=== PATIENT | male | born 1970 | race Caucasian/White ===

== ENCOUNTER 2016-06-15 21:16 | Inpatient (IN) | payer SELFPAY ==
[~2016-06-15] VITALS: Ht 175.3 cm; Wt 68.3 kg
[2016-06-15 00:30] VITALS: BP 90/48
[2016-06-15 00:45] VITALS: BP 88/47
[2016-06-16] VITALS (22 sets, daily range): BP systolic 83–134; BP diastolic 39–61
--- NOTE | 2016-06-16 01:38 | RAD ---
Examination: Single frontal view chest HISTORY ET tube placement. COMPARISON None available performed. FINDINGS The ET tube tip is identified in the trachea just below the level of the clavicles. The cardiomediastinal silhouette grossly appears unremarkable. The feeding tube is seen below the diaphragm with the tip likely in the stomach. There is no acute infiltrate or visualized pneumothorax identified. IMPRESSION 1. ET tube, feeding tube in place. 2. No acute cardiopulmonary findings. Electronically signed by: Darwin Wheat (Jun 16, 2016 01:37:13)
--- NOTE | 2016-06-16 01:39 | RAD ---
Examination: Frontal with abdomen. HISTORY History of feeding tube placement. COMPARISON None available Findings The NG tube tip projects in the left mid abdomen likely within the body of the stomach. The bowel gas pattern appears unremarkable. Feces and gas noted in the colon. IMPRESSION NG tube in place. Electronically signed by: Darwin Wheat (Jun 16, 2016 01:38:23)
[2016-06-16] MEDS ORDERED: MIDAZOLAM PREMIX 100 ML IV PRN (02:15)
[2016-06-16 02:41] LABS: HEMATOCRIT 34.9 % (39.0-53.0); HEMOGLOBIN 11.7 g/dL (13.0-17.5); RED BLOOD COUNT 3.99 x10^6/uL (4.30-5.70)
[2016-06-16 02:46] LABS: ALBUMIN 3.1 g/dL (3.4-5.0); ALBUMIN/GLOBULIN RATIO 1.1 (1.0-1.7); CALCIUM 8.2 mg/dL (8.5-10.1); CREATININE 0.9 mg/dL (0.7-1.3); GFR 91.7; POTASSIUM 3.8 mmol/L (3.5-5.1); TOTAL BILIRUBIN 0.3 mg/dL (0.2-1.0); TOTAL PROTEIN 5.9 g/dL (6.4-8.2)
[2016-06-16] MEDS ORDERED: HYDR50CA PO (03:27)
[2016-06-16 08:22] LABS: HCO3 ABG 22 mmol/L (21-28); PCO2 ABG 39 mmHg (35-46); PH ABG 7.38 (7.35-7.45); PO2 ABG 88 mmHg (75-108); SAT O2 ABG 97 % (92-99)
[2016-06-16 08:25] LABS: FIO2 ABG 40
[2016-06-16] MEDS: CHLORHEXIDINE 0.12% 15 ML MOUTHWASH. MM SCH ×3 (09:00→21:00)
--- NOTE | 2016-06-16 12:14 | PDOC ---
Provider Note Provider Note dictated LINDY SHARMA MD Jun 16, 2016 12:14
[2016-06-16 12:17] LABS: FIO2 ABG 40; HCO3 ABG 25 mmol/L (21-28); PCO2 ABG 39 mmHg (35-46); PH ABG 7.42 (7.35-7.45); PO2 ABG 130 mmHg (75-108); SAT O2 ABG 98 % (92-99)
[2016-06-16 12:18] LABS: ALLEN TEST Y
[2016-06-16] MEDS: PANTOPRAZOLE IV PUSH 40 MG VIAL. IVP SCH (12:43)
[2016-06-16] MEDS ORDERED: ENOXAPARIN 40 MG/0.4 ML DISP.SYRIN. SQ SCH (13:00)
[2016-06-16] MEDS: CEFTRIAXONE SODIUM 1 GM in IV NORMAL SALINE 50ML 50 ML IV SCH (13:49)
--- NOTE | 2016-06-16 14:16 | HP ---
ADMIT DATE: 06/16/2016 CHIEF COMPLAINT: Mental status change. HISTORY OF PRESENT ILLNESS: The patient is a pleasant 45-year-old male who I believe is having issues with drug abuse. He also has a history of seizures and psychiatric issues. From the story I got, he was [place] where he was acting abnormal. I guess he was placed on an ambulance, was combative. He was given 300 mg of IM ketamine to calm him down. He was then taken to [facility] ER and when he got there, the ER doctor felt like his respiratory status was poor. He could not protect his airway. The ER doctor went ahead and intubated him. The ER physician called me last night. I accept him as a transfer. The patient is now in the ICU on the vent. PAST MEDICAL HISTORY: Difficult to obtain, but in the record, it appears he has seizures, depression, anxiety, probable drug abuse, tobacco abuse. ALLERGIES: Codeine, tetanus, and diphtheria toxoids. SOCIAL HISTORY: He lives at [place], we are not sure if he smokes or drinks. We believe he takes drugs. MEDICATIONS: Reviewed, please refer to the MRAD. REVIEW OF SYSTEMS: Unobtainable. PHYSICAL EXAMINATION: VITAL SIGNS: Temperature is 100.7, pulse 100, respirations 16, blood pressure currently 108/44. GENERAL: He is sedated on the vent. HEART: Distant S1, S2, a little bit tachycardic. LUNGS: Seems mostly clear with some slight left crackles. ABDOMEN: Soft, decreased bowel sounds. EXTREMITIES: Trace edema. SKIN: No rashes. ENDOCRINE: No thyromegaly. LYMPHATICS: No cervical nodes. HEMATOPOIETIC: No bruising. LABORATORY DATA: White count 9, hemoglobin 11.7, platelets 178. Electrolytes: Sodium 143, potassium 3.8, chloride 108, bicarbonate 28, BUN 20, creatinine 0.9, glucose 107. AST is 24, ALT is slightly low at 14, alkaline phosphatase little low at 43. Total protein low at 5.9. Albumin low at 3.1. KUB shows that he has an NG in place. Chest x-ray, no acute cardiopulmonary finding. ASSESSMENT AND PLAN: Mental status change, suspect toxic encephalopathy from drugs with secondary respiratory failure. The patient has been admitted to the ICU. We consulted Pulmonary to help us wean him off the ventilator. We will continue his home medications. Regarding the fever and he had high white count earlier at [facility], we are going to go ahead and consult Infectious Disease. Once we get him off the ventilator, I suspect he will need psychiatric assessment. PROGNOSIS: Guarded. NIAL Candace DIAZ DO DR: RUDY/fannie JOB#: [id number] / [id number]
[2016-06-16 15:13] LABS: HCO3 ABG 24 mmol/L (21-28); PCO2 ABG 41 mmHg (35-46); PH ABG 7.38 (7.35-7.45); PO2 ABG 62 mmHg (75-108); SAT O2 ABG 92 % (92-99)
[2016-06-16 15:15] LABS: FIO2 ABG 40
--- NOTE | 2016-06-16 15:28 | CONS ---
DATE OF CONSULTATION: ATTENDING PHYSICIAN: Dr. Pro. REASON FOR CONSULTATION: Respiratory failure, drug overdose. HISTORY OF PRESENT ILLNESS: The patient is a 45-year-old male who was a resident of [facility]. He has psychiatric history. The patient was brought to [place] [facility] with altered level of consciousness and unknown drug ingestion was suspected. He was very combative in the ER and he received 300 mg of Ketamine. He was very agitated and he was intubated for airway protection. The patient does have history of seizure disorder. At this point, there is no documentation whether he had seizure or not, he did had increased lactic acid at [facility] was 5.9, which is now down to only 0.9. He is sedated with low-dose Versed. His chest x-ray was clear, endotracheal tube is in satisfactory position. I have been asked to see him for ventilator management. He had a fever of 100.7. PAST MEDICAL HISTORY: Seizure disorder and anxiety. PAST SURGICAL HISTORY: Unknown. SOCIAL HISTORY: Unknown. ALLERGIES: CODEINE, TETANUS AND DIPHTHERIA. CURRENT MEDICATIONS: Reviewed as listed in the MRAD. PHYSICAL EXAMINATION: VITAL SIGNS: On examination, T-max of 100.7, blood pressure 115/54, pulse ox 98% on current AC mode and tidal volume of 550 and 40% FiO2. HEENT: Sclerae nonicteric. NECK: Supple. LUNGS: Clear. CARDIOVASCULAR: Regular rate. ABDOMEN: Soft. EXTREMITIES: With no pitting edema. LABORATORY DATA: Chest x-ray was reviewed and was clear. Labs from [facility] were reviewed. BUN was 18, creatinine 1.0. Urine drug screen: Positive for benzo. ABGs with a pH of 7.32, pCO2 of 52 and a pO2 of 256. His CBC was also reviewed. White cell count 13.5. IMPRESSION: 1. Acute respiratory failure secondary to acute toxic encephalopathy. 2. Acute toxic encephalopathy. He had ingested unknown substance. Urine drug screen was positive for benzo only. We will discontinue sedation and assess his mental status. 3. Low-grade fever. It could be related to seizure. His lactic acid has now completely normalized and I think it is probably related to seizure. Chest x-ray is clear. We would monitor for fever and maybe consider empiric antibiotics. RECOMMENDATIONS: 1. Discontinue Versed. 2. Assess for mental status. 3. If he wakes up and does not become agitated, then we will do a CPAP trial and possible extubation 4. Add empiric antibiotics. 5. Consult neurology. LINDY SHARMA MD DR: BELKIS/fannie JOB#: [id number] / [id number] HERMES
[2016-06-16] MEDS: GUAIFENESIN 200 MG/10 ML LIQUID. PO PRN (23:59)
[2016-06-17] VITALS (12 sets, daily range): BP systolic 95–136; BP diastolic 50–68
[2016-06-17] MEDS: GUAIFENESIN 200 MG/10 ML LIQUID. PO PRN (04:13)
[2016-06-17 04:52] LABS: BASO % 0 % (0-3); EOS % 1 % (0-3); HEMATOCRIT 36.5 % (39.0-53.0); HEMOGLOBIN 12.4 g/dL (13.0-17.5); LYMPH # 1.3 x10^3/uL (1.0-4.8); LYMPH % 15 % (24-48); MEAN CORPUSCULAR HEMOGLOBIN 29 pg (25-35); MEAN CORPUSCULAR HGB CONC 34 g/dL (31-37); MEAN CORPUSCULAR VOLUME 86 fL (79-100); MONO % 13 % (0-9); NEUT % 71 % (31-73); PLATELET COUNT 165 x10^3/uL (140-400); RED BLOOD COUNT 4.25 x10^6/uL (4.30-5.70); RED CELL DISTRIBUTION WIDTH 13.9 % (11.5-14.5)
[2016-06-17 05:09] LABS: CALCIUM 8.1 mg/dL (8.5-10.1); CREATININE 0.7 mg/dL (0.7-1.3); GFR 122.5; POTASSIUM 3.2 mmol/L (3.5-5.1)
--- NOTE | 2016-06-17 07:54 | PDOC ---
Infectious Disease Note ROS ROS GEN: Denies fevers, chills, sweats HEENT: Denies blurred vision, sore throat CV: Denies chest pain RESP: Denies shortness of air, cough GI: Denies n/v/d NEURO: Denies confusion, dizziness MSK: Denies weakness, joint pain/swelling Vital Sign Vital Signs Vital Signs Date Time Temp Pulse Resp B/P Pulse Ox O2 Delivery O2 Flow Rate FiO2 06/17/16 06:00 68 19 106/56 98 Room Air 06/17/16 04:00 98.3 98.3 06/16/16 14:00 2.0 Physical Exam PHYSICAL EXAM GENERAL: NAD, Alert HEENT: PERRL, OC/OP NECK: Supple, no JVD, no LN LUNGS: Clear HEART: S1S2, no gallop, no murmur ABD: Soft, NT, no organomegaly, no rebound EXT: No edema, no cyanosis [employer]: Alert, oriented x 3, no focal neurologic deficit SKIN: No rash IV: ok Labs Lab Laboratory Tests Test 06/16/16 08:00 06/16/16 10:45 06/16/16 15:00 06/17/16 04:30 O2 Saturation 97% (92-99) 92% (92-99) Arterial Blood pH 7.38 (7.35-7.45) 7.38 (7.35-7.45) Arterial Blood pCO2 at Patient Temp 39mmHg (35-46) 41mmHg (35-46) Arterial Blood pO2 at Patient Temp 88mmHg (75-108) 62mmHg (75-108) Arterial Blood HCO3 22mmol/L (21-28) 24mmol/L (21-28) Arterial Blood Base Excess -2mmol/L (-3-3) -1mmol/L (-3-3) FiO2 40 40 Lactic Acid Level 0.5mmol/L (0.4-2.0) White Blood Count 9.0x10^3/uL (4.0-11.0) Red Blood Count 4.25x10^6/uL (4.30-5.70) Hemoglobin 12.4g/dL (13.0-17.5) Hematocrit 36.5% (39.0-53.0) Mean Corpuscular Volume 86fL (79-100) Mean Corpuscular Hemoglobin 29pg (25-35) Mean Corpuscular Hemoglobin Concent 34g/dL (31-37) Red Cell Distribution Width 13.9% (11.5-14.5) Platelet Count 165x10^3/uL (140-400) Neutrophils (%) (Auto) 71% (31-73) Lymphocytes (%) (Auto) 15% (24-48) Monocytes (%) (Auto) 13% (0-9) Eosinophils (%) (Auto) 1% (0-3) Basophils (%) (Auto) 0% (0-3) Neutrophils # (Auto) 6.3x10^3uL (1.8-7.7) Lymphocytes # (Auto) 1.3x10^3/uL (1.0-4.8) Monocytes # (Auto) 1.2x10^3/uL (0.0-1.1) Eosinophils # (Auto) 0.1x10^3/uL (0.0-0.7) Basophils # (Auto) 0.0x10^3/uL (0.0-0.2) Sodium Level 141mmol/L (136-145) Potassium Level 3.2mmol/L (3.5-5.1) Chloride Level 107mmol/L (98-107) Carbon Dioxide Level 25mmol/L (21-32) Anion Gap 9 (6-14) Blood Urea Nitrogen 10mg/dL (8-26) Creatinine 0.7mg/dL (0.7-1.3) Estimated GFR (Cockcroft-Gault) 122.5 Glucose Level 81mg/dL (70-99) Calcium Level 8.1mg/dL (8.5-10.1) Objective Assessment Fever - improved Sinus congestion ? URI ? thrush H/o Hep C - treated ? Substance abuse Plan Plan of Care Cont Rocephin Add Azithromycin Add Nystatin HIV abd F/u labs and response Labs reviewed Thank you # [id number] JOSE JURADO MD Jun 17, 2016 07:54
[2016-06-17] MEDS: PANTOPRAZOLE IV PUSH 40 MG VIAL. IVP SCH (08:17)
[2016-06-17] MEDS ORDERED: AZITHROMYCIN 250 MG TABLET PO SCH (09:00)
[2016-06-17] MEDS ORDERED: NYSTATIN 100,000 UNITS/ML 5 ML ORAL.SUSP. SWSW SCH (09:00)
[2016-06-17] MEDS: CEFTRIAXONE SODIUM 1 GM in IV NORMAL SALINE 50ML 50 ML IV SCH (09:16)
[2016-06-17] MEDS ORDERED: POTASSIUM CHLORIDE 20 MEQ TABLET.ER. PO ONE (10:00)
--- NOTE | 2016-06-17 11:14 | PDOC ---
PULMONARY PROGRESS NOTES Subjective full awake extubated 06/16 am Vitals Vital Signs Date Time Temp Pulse Resp B/P Pulse Ox O2 Delivery O2 Flow Rate FiO2 06/17/16 08:00 Room Air 06/17/16 06:00 68 19 106/56 98 06/17/16 04:00 98.3 98.3 06/16/16 14:00 2.0 General: Alert, No acute distress Lungs: Clear Abdomen: Soft Neuro Exam: Alert Extremities: No Edema Skin: Warm Labs Laboratory Tests Test 06/16/16 00:35 06/16/16 01:00 06/16/16 01:50 06/16/16 08:00 Nasal Screen MRSA (PCR) Negative (Negative) O2 Saturation 98% (92-99) 97% (92-99) Arterial Blood pH 7.42 (7.35-7.45) 7.38 (7.35-7.45) Arterial Blood pCO2 at Patient Temp 39mmHg (35-46) 39mmHg (35-46) Arterial Blood pO2 at Patient Temp 130mmHg (75-108) 88mmHg (75-108) Arterial Blood HCO3 25mmol/L (21-28) 22mmol/L (21-28) Arterial Blood Base Excess 1mmol/L (-3-3) -2mmol/L (-3-3) FiO2 40 40 White Blood Count 9.0x10^3/uL (4.0-11.0) Red Blood Count 3.99x10^6/uL (4.30-5.70) Hemoglobin 11.7g/dL (13.0-17.5) Hematocrit 34.9% (39.0-53.0) Mean Corpuscular Volume 88fL (79-100) Mean Corpuscular Hemoglobin 29pg (25-35) Mean Corpuscular Hemoglobin Concent 34g/dL (31-37) Red Cell Distribution Width 14.0% (11.5-14.5) Platelet Count 178x10^3/uL (140-400) Sodium Level 143mmol/L (136-145) Potassium Level 3.8mmol/L (3.5-5.1) Chloride Level 108mmol/L (98-107) Carbon Dioxide Level 28mmol/L (21-32) Anion Gap 7 (6-14) Blood Urea Nitrogen 20mg/dL (8-26) Creatinine 0.9mg/dL (0.7-1.3) Estimated GFR (Cockcroft-Gault) 91.7 BUN/Creatinine Ratio 22 (6-20) Glucose Level 107mg/dL (70-99) Lactic Acid Level 0.9mmol/L (0.4-2.0) Calcium Level 8.2mg/dL (8.5-10.1) Total Bilirubin 0.3mg/dL (0.2-1.0) Aspartate Amino Transf (AST/SGOT) 24U/L (15-37) Alanine Aminotransferase (ALT/SGPT) 14U/L (16-63) Alkaline Phosphatase 43U/L (46-116) Total Protein 5.9g/dL (6.4-8.2) Albumin 3.1g/dL (3.4-5.0) Albumin/Globulin Ratio 1.1 (1.0-1.7) Test 06/16/16 10:45 06/16/16 15:00 06/17/16 04:30 Lactic Acid Level 0.5mmol/L (0.4-2.0) O2 Saturation 92% (92-99) Arterial Blood pH 7.38 (7.35-7.45) Arterial Blood pCO2 at Patient Temp 41mmHg (35-46) Arterial Blood pO2 at Patient Temp 62mmHg (75-108) Arterial Blood HCO3 24mmol/L (21-28) Arterial Blood Base Excess -1mmol/L (-3-3) FiO2 40 White Blood Count 9.0x10^3/uL (4.0-11.0) Red Blood Count 4.25x10^6/uL (4.30-5.70) Hemoglobin 12.4g/dL (13.0-17.5) Hematocrit 36.5% (39.0-53.0) Mean Corpuscular Volume 86fL (79-100) Mean Corpuscular Hemoglobin 29pg (25-35) Mean Corpuscular Hemoglobin Concent 34g/dL (31-37) Red Cell Distribution Width 13.9% (11.5-14.5) Platelet Count 165x10^3/uL (140-400) Neutrophils (%) (Auto) 71% (31-73) Lymphocytes (%) (Auto) 15% (24-48) Monocytes (%) (Auto) 13% (0-9) Eosinophils (%) (Auto) 1% (0-3) Basophils (%) (Auto) 0% (0-3) Neutrophils # (Auto) 6.3x10^3uL (1.8-7.7) Lymphocytes # (Auto) 1.3x10^3/uL (1.0-4.8) Monocytes # (Auto) 1.2x10^3/uL (0.0-1.1) Eosinophils # (Auto) 0.1x10^3/uL (0.0-0.7) Basophils # (Auto) 0.0x10^3/uL (0.0-0.2) Sodium Level 141mmol/L (136-145) Potassium Level 3.2mmol/L (3.5-5.1) Chloride Level 107mmol/L (98-107) Carbon Dioxide Level 25mmol/L (21-32) Anion Gap 9 (6-14) Blood Urea Nitrogen 10mg/dL (8-26) Creatinine 0.7mg/dL (0.7-1.3) Estimated GFR (Cockcroft-Gault) 122.5 Glucose Level 81mg/dL (70-99) Calcium Level 8.1mg/dL (8.5-10.1) Laboratory Tests Test 06/16/16 15:00 06/17/16 04:30 O2 Saturation 92% (92-99) Arterial Blood pH 7.38 (7.35-7.45) Arterial Blood pCO2 at Patient Temp 41mmHg (35-46) Arterial Blood pO2 at Patient Temp 62mmHg (75-108) Arterial Blood HCO3 24mmol/L (21-28) Arterial Blood Base Excess -1mmol/L (-3-3) FiO2 40 White Blood Count 9.0x10^3/uL (4.0-11.0) Red Blood Count 4.25x10^6/uL (4.30-5.70) Hemoglobin 12.4g/dL (13.0-17.5) Hematocrit 36.5% (39.0-53.0) Mean Corpuscular Volume 86fL (79-100) Mean Corpuscular Hemoglobin 29pg (25-35) Mean Corpuscular Hemoglobin Concent 34g/dL (31-37) Red Cell Distribution Width 13.9% (11.5-14.5) Platelet Count 165x10^3/uL (140-400) Neutrophils (%) (Auto) 71% (31-73) Lymphocytes (%) (Auto) 15% (24-48) Monocytes (%) (Auto) 13% (0-9) Eosinophils (%) (Auto) 1% (0-3) Basophils (%) (Auto) 0% (0-3) Neutrophils # (Auto) 6.3x10^3uL (1.8-7.7) Lymphocytes # (Auto) 1.3x10^3/uL (1.0-4.8) Monocytes # (Auto) 1.2x10^3/uL (0.0-1.1) Eosinophils # (Auto) 0.1x10^3/uL (0.0-0.7) Basophils # (Auto) 0.0x10^3/uL (0.0-0.2) Sodium Level 141mmol/L (136-145) Potassium Level 3.2mmol/L (3.5-5.1) Chloride Level 107mmol/L (98-107) Carbon Dioxide Level 25mmol/L (21-32) Anion Gap 9 (6-14) Blood Urea Nitrogen 10mg/dL (8-26) Creatinine 0.7mg/dL (0.7-1.3) Estimated GFR (Cockcroft-Gault) 122.5 Glucose Level 81mg/dL (70-99) Calcium Level 8.1mg/dL (8.5-10.1) Medications Active Scripts Medications Dose Route/Sig Days Date Category Vistaril (Hydroxyzine Pamoate) 50 Mg Capsule Unknown Dose PO UD 06/16/16 Reported Impression . 1. Acute respiratory failure secondary to acute toxic encephalopathy. 2. Acute toxic encephalopathy. He had ingested unknown substance. Urine drug screen was positive for benzo only. 3. Low-grade fever. It could be related to seizure. His lactic acid has now completely normalized and I think it is probably related to seizure. Chest x-ray is clear. empiric antibiotics. Plan . 1. On RA, doing well, fully awake. denies any drug ingestion 2. stable for dc 3. PO empiric antibiotics. 5 LINDY SHARMA MD Jun 17, 2016 11:14
--- NOTE | 2016-06-17 22:43 | CONS ---
DATE OF CONSULTATION: 06/17/2016 PATIENT'S ROOM: ICU 9. REQUESTING PHYSICIAN: Dr. Pro. REASON FOR CONSULTATION: Fever. HISTORY OF PRESENT ILLNESS: The patient is a 45-year-old gentleman who admits he has had a history of marijuana and meth use in the distant past, but denies any recent use. 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 He was brought to [facility] on 15 of June secondary to apparent mental status change. According to the Emergency Room records from [place], he has returned from work and was noted to be agitated and thrashing in the transport van. EMS was called and brought to [facility] Emergency Room where he was given 300 mg of ketamine. He had a white count of 13.5, hemoglobin 12.5, platelets of 197 with 82% neutrophils. Urinalysis was clean, not consistent with urinary tract infection. Creatinine was 1. Glucose was elevated at 214. Creatinine kinase was also elevated at 314. Lipase was 55. Lactic acid initially was 5.9. He underwent a drug screen that was positive for benzos, but otherwise negative. Alcohol levels were negative. He was intubated. NG tube was placed. There are no acute findings on his abdominal film. Chest x-ray was also performed, showed no acute pulmonary findings. He has since been extubated. He has been placed on Rocephin. He did have temperatures as high as 100.9 yesterday. Currently, the patient is extubated. He is complaining of some sinus congestion. States he has been feeling somewhat ill for approximately 3 weeks, has been taking [id number] ibuprofen, but no other medications or antibiotics. He has some sinus drainage, occasional cough, has generalized aches, also has a mild dry throat, minimal sputum production. No chest pain. No nausea, vomiting, diarrhea, dysuria, frequency, urgency. No swelling of the joints. PAST MEDICAL HISTORY: Positive for the above-mentioned substance abuse, also has a seizure disorder and anxiety. He has history of hepatitis C, which he states he has been treated for. PAST SURGICAL HISTORY: He denies. SOCIAL HISTORY: He is a smoker. Denies any chewing tobacco. Denies any recent substance abuse, although again positive for marijuana and methamphetamines in the past. Denies any sexually transmitted diseases. States he was tested for HIV approximately a year ago, was negative. ALLERGIES: Listed as CODEINE, TETANUS AND DIPHTHERIA. FAMILY HISTORY: Noncontributory. CURRENT MEDICATIONS: Include Rocephin, chlorhexidine (Peridex), Robitussin, Protonix. PHYSICAL EXAMINATION: VITAL SIGNS: T-max 100.9 axillary, currently 93, pulse 68, respirations 19, blood pressure 106/56. CONSTITUTIONAL: He is alert, cooperative, in no acute distress. HEENT: Pupils are equal and reactive. He has normal conjunctivae. Oral cavity, oropharynx, he has poor dentition, has some questionable thrush. NECK: Supple, no JVD. LUNGS: Clear to auscultation. HEART: S1, S2, without murmur. ABDOMEN: Soft, nontender, nondistended with positive bowel sounds. EXTREMITIES: Without clubbing, cyanosis or gross edema. SKIN: He has multiple tattoos, but no rashes. NEUROLOGIC: He is nonfocal, moves all extremities. Affect is flat. LABORATORY VALUES: White count 9, hemoglobin 12.4, platelets 165, neutrophils 71, lymphs 15. Creatinine 0.7, glucose 81, AST was 24, ALT was 14. MRSA screen was negative. Radiology reviewed in history of present illness. Previous records from [facility] reviewed. IMPRESSION: 1. Fevers, improved. 2. Sinus congestion has been ongoing for several weeks, questionable upper respiratory infection. 3. Questionable thrush. 4. History of hepatitis C, has been treated in the past. 5. Questionable substance abuse. RECOMMENDATIONS: For now, continue the Rocephin. We will add azithromycin as well as Nystatin swish and swallow. Check an HIV antibody. Follow up on his labs and response. Thank you for allowing me to participate in this patient's care. If you have any questions, please do not hesitate to contact me. JOSE JURADO MD DR: TORITO/fannie JOB#: [id number] / [id number]
== END 2016-06-17 11:25 | disposition home or self-care (01) | DRG 917 ==
LOC: 1 WEST ICU 06-16 00:29
PROVIDERS: ADMIT Internal Medicine; ATTEND Internal Medicine
PROC: 5A1935Z Respiratory Ventilation, Less than 24 Consecutive Hours (ICD-10-PCS; principal; 2016-06-16)
PROC: 0BH17EZ Insertion of Endotracheal Airway into Trachea, Via Natural or Artificial Opening (ICD-10-PCS; 2016-06-16)
DX: T50.901A Poisoning by unspecified drugs, medicaments and biological substances, accidental (unintentional), initial encounter (principal); G92 Toxic encephalopathy; J96.00 Acute respiratory failure, unspecified whether with hypoxia or hypercapnia; Z79.899 Other long term (current) drug therapy; F32.9 Major depressive disorder, single episode, unspecified; B19.20 Unspecified viral hepatitis C without hepatic coma; F15.90 Other stimulant use, unspecified, uncomplicated; F41.9 Anxiety disorder, unspecified; F17.210 Nicotine dependence, cigarettes, uncomplicated; G40.909 Epilepsy, unspecified, not intractable, without status epilepticus; Z88.7 Allergy status to serum and vaccine; Z88.8 Allergy status to other drugs, medicaments and biological substances
CPT/HCPCS: 36415; 36600; 71010; 74000; 80048; 80053; 82805; 83605; 85027; 86703; 87040; 87641; 94003; C9113; J0696; J2250; Q0144